=== PATIENT | female | born 1940 | race Caucasian/White ===

== ENCOUNTER → 2016-04-14 | Outpatient (CLI) | payer OTHER, MEDICARE ==
[~2016-04-14] MED LIST: ACET-1256 PO; AMIT75TA2 PO; AMLO5TAB4 PO; CLB/200 PO; DOXY1TAB6 PO; FERR324T PO; FEXO1TAB46 PO; METO-551 PO; MULT-663 PO; OMEP40CA41 PO; OXYC1TAB3 PO; PRED10TA PO; PRM/45 PO; TRAM-10 PO; TRAV0.00 OPB; VALS-10 PO; WARF1TAB PO; [UNRECOGNIZED DRUG - CODE] PO; [UNRECOGNIZED DRUG - CODE] PO
== END | disposition home or self-care (01) ==
LOC: C.LABSPEC 15:12
PROVIDERS: ATTEND Dermatology
DX: L98.9 Disorder of the skin and subcutaneous tissue, unspecified (principal)

== ENCOUNTER → 2016-05-01 | Outpatient (CLI) | payer OTHER, MEDICARE ==
[2016-05-01 10:59] LABS: BASO % 0.8 %; BASO ABS # 0.04 K/uL (0-0.2); COMPLETE YES; EOS % 6.6 %; IG% 0.2 %; LYMPH % 37.5 %; LYMPH ABS # 1.82 K/uL (1.2-3.4); MEAN CELL VOLUME 90.2 fL (80-100); MEAN CORPUSCULAR HEMOGLOBIN 30.9 pg (25-34); MEAN CORPUSCULAR HGB CONC 34.3 g/dl (32-36); MEAN PLATELET VOLUME 10.1 fL (7.4-10.4); NEUT % 46.9 %; PLATELET COUNT 333 K/uL (130-400); RED BLOOD COUNT 3.88 M/uL (4.2-5.4); WHITE BLOOD COUNT 4.85 K/uL (4.8-10.8)
[2016-05-01 11:21] LABS: ALKALINE PHOSPHATASE 67 U/L (45-117); ALT/SGPT 16 U/L (12-78); BLOOD UREA NITROGEN 15 mg/dl (7-18); CALCIUM 9.3 mg/dl (8.5-10.1); CARBON DIOXIDE 32 mmol/L (21-32); CHLORIDE 95 mmol/L (98-107); CHOLESTEROL 203 mg/dl (0-200); CREATININE 0.74 mg/dl (0.60-1.20); GLUCOSE 92 mg/dl (70-99); POTASSIUM 3.9 mmol/L (3.5-5.1); SODIUM 135 mmol/L (136-145); TRIGLYCERIDES 73 mg/dl (0-150); VERY LOW DENSITY LIPOPROT CALC 15 mg/dl
[2016-05-01 11:33] LABS: ALB/GLOB RATIO 1.1 (0.9-2); AST/SGOT 13 U/L (15-37); CHOLESTEROL/HDL RATIO 1.9; HDL CHOLESTEROL 106 mg/dl; LDL CHOLESTEROL CALCULATED 82 mg/dl
--- NOTE | 2016-05-06 09:00 | CODING QUERY MEDICAL NECESSITY ---
SUPPORTING DIAGNOSIS NEEDED Dr. Atkins, A supporting diagnosis is required for the test/procedure performed on this patient in order for us to be reimbursed by the patient's insurance. Please provide a supporting diagnosis for the following test/procedure listed below next to the test name along with your signature. *If there is no additional diagnosis for this patient that would support the following test/procedure please document that below next to the test/procedure. Test(s)/Procedure(s) that require a supporting diagnosis: * ([id number]) VITAMIN D ASSAY DIAGNOSIS: DATE OF SERVICE: 05/01/16 Provider Signature: Date: Thank you Jt [facility] Information Management Once completed, please kindly fax back to [phone] For questions please call [phone]
== END | disposition home or self-care (01) ==
LOC: C.LABBC 08:19
PROVIDERS: ATTEND Internal Medicine
DX: K21.9 Gastro-esophageal reflux disease without esophagitis (principal); M48.06 Spinal stenosis, lumbar region; M85.80 Other specified disorders of bone density and structure, unspecified site

== ENCOUNTER → 2016-05-04 | Outpatient (CLI) | payer OTHER, MEDICARE | END | disposition home or self-care (01) | LOC: C.LABSPEC 16:36 | PROVIDERS: ATTEND Dermatology | DX: S91.002A Unspecified open wound, left ankle, initial encounter (principal); X58.XXXA Exposure to other specified factors, initial encounter ==

== ENCOUNTER → 2016-05-25 | Outpatient (CLI) | payer OTHER, MEDICARE ==
--- NOTE | 2016-05-25 11:03 | DIAGNOSTIC IMAGING REPORT ---
LEFT ANKLE MIN 3 VIEWS ROUTINE CLINICAL HISTORY: S91.002A Wound of left [id number] pain COMPARISON: None. DISCUSSION: Small old avulsion tip medial malleolus. Margins are well corticated. Cortical margins are intact. There is no evidence for abnormal depressed reaction. Subtalar joint is intact. Mild soft tissue edema IMPRESSION: Mild soft tissue edema. No acute bony abnormality. Electronically signed by: Adonis Garza M.D. 05/25/2016 11:00 AM Dictated Date/Time: 05/25/2016 10:59 AM
== END | disposition home or self-care (01) ==
LOC: C.RAD1850 09:57
PROVIDERS: ATTEND Dermatology
DX: S91.002A Unspecified open wound, left ankle, initial encounter (principal); X58.XXXA Exposure to other specified factors, initial encounter

== ENCOUNTER → 2016-08-24 | Outpatient (CLI) | payer OTHER, MEDICARE | END | disposition home or self-care (01) | LOC: C.LABBC 08:32 | PROVIDERS: ATTEND Internal Medicine | DX: E03.9 Hypothyroidism, unspecified (principal) ==

== ENCOUNTER → 2016-08-30 | Outpatient (CLI) | payer OTHER, MEDICARE | END | disposition home or self-care (01) | LOC: C.LABSPEC 13:18 | PROVIDERS: ATTEND Dermatology | DX: S91.002A Unspecified open wound, left ankle, initial encounter (principal); X58.XXXA Exposure to other specified factors, initial encounter ==

== ENCOUNTER → 2017-03-01 | Outpatient (CLI) | payer OTHER, MEDICARE | END | disposition home or self-care (01) | LOC: C.PATHSPEC 16:32 | PROVIDERS: ATTEND Dermatology | DX: L82.1 Other seborrheic keratosis (principal); D22.61 Melanocytic nevi of right upper limb, including shoulder ==

== ENCOUNTER → 2017-05-11 | Outpatient (CLI) | payer OTHER, MEDICARE ==
[2017-05-11 11:16] LABS: BASO % 0.3 %; BASO ABS # 0.02 K/uL (0-0.2); EOS % 4.6 %; EOS ABS # 0.27 K/uL (0-0.5); HEMATOCRIT 32.3 % (37-47); HEMOGLOBIN 10.8 g/dL (12.0-16.0); IG# 0.01 K/uL (0.00-0.02); LYMPH % 33.6 %; LYMPH ABS # 1.97 K/uL (1.2-3.4); MEAN CELL VOLUME 90.2 fL (80-100); MEAN CORPUSCULAR HEMOGLOBIN 30.2 pg (25-34); MEAN CORPUSCULAR HGB CONC 33.4 g/dl (32-36); MEAN PLATELET VOLUME 9.4 fL (7.4-10.4); MONO % 10.4 %; MONO ABS # 0.61 K/uL (0.11-0.59); NEUT % 50.9 %; NEUT ABS # 2.99 K/uL (1.4-6.5); PLATELET COUNT 293 K/uL (130-400); RED CELL DISTRIBUTION WIDTH CV 13.2 % (11.5-14.5); RED CELL DISTRIBUTION WIDTH SD 43.4 fL (36.4-46.3); WHITE BLOOD COUNT 5.87 K/uL (4.8-10.8)
[2017-05-11 12:31] LABS: ALBUMIN 3.3 gm/dl (3.4-5.0); ALT/SGPT 20 U/L (12-78); AST/SGOT 16 U/L (15-37); BLOOD UREA NITROGEN 17 mg/dl (7-18); CARBON DIOXIDE 27 mmol/L (21-32); GLUCOSE 90 mg/dl (70-99); POTASSIUM 3.9 mmol/L (3.5-5.1); SODIUM 134 mmol/L (136-145)
[2017-05-11 12:41] LABS: ALKALINE PHOSPHATASE 73 U/L (45-117); CHOLESTEROL 191 mg/dl (0-200); LDL CHOLESTEROL CALCULATED 74 mg/dl; TOTAL PROTEIN 6.9 gm/dl (6.4-8.2)
== END | disposition home or self-care (01) ==
LOC: C.LABBC 08:18
PROVIDERS: ATTEND Internal Medicine
DX: I10 Essential (primary) hypertension (principal); E03.9 Hypothyroidism, unspecified; M48.061 Spinal stenosis, lumbar region without neurogenic claudication; M35.3 Polymyalgia rheumatica; M85.80 Other specified disorders of bone density and structure, unspecified site

== ENCOUNTER 2022-09-26 14:58 | Inpatient (IN) ==
--- NOTE | 2022-09-26 15:15 | Emergency Department Note ---
Impression & Plan Acute dyspnea ADMIT ED Provider Note HPI: The patient is an 81-year-old female who presents emergency department with chief complaint of dyspnea. Patient states that she has been dealing with this on and off for about the past month. Patient states that has been getting worse over the past several days. Patient states at times over the past month she has woken up with chest pain that spontaneously resolved. Patient states she did not have any chest pain this morning when she woke up. Patient states that she went to a local urgent care because her dyspnea was not going away. Patient states she was advised to go to the emergency department when she was seen at [place]. On arrival here to the ED the patient is hemodynamically stable but does appear to be dyspneic. She denies any chest pain. She is saturating well on room air on arrival. ROS: - Per HPI Differential Diagnosis: Acute coronary syndrome, acute CHF exacerbation, pulmonary edema, viral upper respiratory infection, pleural effusion, amongst other potential pathologies. *Outpatient medications and allergy history reviewed. *Pertinent external medical records reviewed. 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 EKG was obtained and per my review shows evidence of left bundle branch block (new from previous EKG available in 2013) with some repolarization abnormalities in the anterior leads V1 through V3. Patient denies any current chest pain therefore heart alert was not activated. I did review the patient's EKG with on-call interventional cardiology, Dr. Vieira, who recommended that the patient be admitted with cardiology consult and is in agreement that heart alert does not need to be activated at this time. Patient remained stable on spring upholsterer and dyspnea did improve while she was at rest in the bed. She remained saturating well on room air. Lab work shows no leukocytosis, hemoglobin is stable 11.9, platelet count is normal, CMP shows mild hyponatremia 133, no evidence of acute kidney injury, troponin is negative x1, BNP is noted to be elevated at 992. Chest x-ray shows some nonspecific interstitial opacities and a small left-sided pleural effusion. Patient denies any recent cough or fever, low suspicion for pneumonia. Given elevated BNP with dyspnea, patient was given a dose of IV Lasix. I discussed all the above findings with the patient and her son at the bedside and they are in agreement for admission. Case was discussed with the on-call hospitalist, Dr. Graves, and the patient was placed for admission in stable condition. Consultants: -Dr. Vieira, Cardiology -Dr. Graves, Hospitalist Disposition discussion held by myself with: Patient and son at bedside Diagnosis: 1. Dyspnea, acute 2. New left bundle branch block on EKG 3. Elevated BNP 4. Pleural effusion, left-sided Disposition: Admission Adonis Shah DO Emergency Medicine Past Med/Surg History Medical History (Updated 09/26/22 @ 17:26 by Misael Graves MD) Arthritis of multiple sites Chronic anemia normochromic normocytic HTN (hypertension) Hypothyroidism Osteopenia after menopause Surgical History History of hysterectomy History of lumbar laminectomy History of oophorectomy Family History Father COPD (chronic obstructive pulmonary disease) Stroke Hypertension Mother No problems noted. Brother Diabetes Uncle Dyslipidemia Denies family history of Ovarian cancer Prostate cancer Dementia Myocardial infarction Breast cancer Lung cancer Colorectal cancer Social History Smoking Status: Former smoker Tobacco Type: Cigarettes Second Hand Exposure: No; Do You Dip or Chew Tobacco: No; Hx Alcohol Use: Yes Alcohol type: wine and hard liquor Alcohol Intake Frequency: 4 or More x per/Week Alcohol Intake Frequency Comment: SOCIAL Hx Substance Use: No Preferred Language: Portuguese Communication Ability: Effective Visual Impairment: Limited Hearing Ability: Normal Archives Technician Required: No marital status: / Current Living Situation: Alone current occupational status: retired 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 [employer] How many Children do You have: 3 Feels Safe at Home: Yes Childhood Exposure to Second-Hand Smoke: Yes caffeine: Yes Dental Care, Regularly: Yes Physical Activity Frequency: Daily Seatbelt Use: always Sunscreen Use: Yes Assistive Devices: Contacts and Glasses Allergies Allergies Allergy/AdvReac Type Severity Reaction Status Date / Time Iodinated Contrast Media Allergy Severe ANAPHYLAXIS Verified 09/26/22 17:05 Home Meds Home Medications Medication Instructions Recorded Confirmed gikinti-ibl-cfa [id number]-xykdesul 250 1 tab PO DAILY 11/28/18 09/26/22 mg-40 mg-5 mg-125 unit tablet fexofenadine 180 mg tablet 180 mg PO DAILY PRN allergic 11/28/18 09/26/22 (Ana Allergy) symptoms travoprost 0.004 % eye drops 1 drops ophthalmic (eye) HS 11/28/18 09/26/22 (Travatan Z) pentoxifylline 400 mg 400 mg PO QAM 05/06/22 09/26/22 tablet,extended release amitriptyline 75 mg tablet 75 mg PO HS 09/26/22 09/26/22 amlodipine 5 mg tablet 5 mg PO QAM 09/26/22 09/26/22 yxnkggbebl-qmboaip-ruhslarh 50 1 cap PO DAILY PRN Migraine 09/26/22 09/26/22 mg-325 mg-40 mg capsule Headache celecoxib 200 mg capsule 200 mg PO QAM 09/26/22 09/26/22 levothyroxine 125 mcg tablet 125 mcg PO QAM 09/26/22 09/26/22 metoprolol tartrate 50 mg tablet 50 mg PO BID 09/26/22 09/26/22 omeprazole 40 mg capsule,delayed 40 mg PO QAM 09/26/22 09/26/22 release telmisartan 40 mg tablet 40 mg PO QAM 09/26/22 09/26/22 Previous Rx's Medication Instructions Recorded clotrimazole-betamethasone 1 1 applic topical DAILY #15 grams 02/22/20 %-0.05 % topical cream tramadol 50 mg tablet 50 mg PO TID PRN pain #90 tabs 08/20/22 Results & Data (ED) Vital Signs Vital Signs - 24 hr 09/26/22 15:00 09/26/22 15:28 09/26/22 15:30 Pulse Rate 83 79 Pulse Rhythm Regular Pulse Strength Normal Respiratory Rate 20 18 Respiratory Effort / Characteristics Non-Labored Spontaneous Spontaneous Short of Breath SOB on Exertion Respiratory Depth Normal Normal Respiratory Pattern Regular Tachypnea Blood Pressure 147/73 H 156/71 H Blood Pressure Mean 97 99 Blood Pressure Position Sitting Pulse Oximetry 95 96 Oxygen Delivery Method Room Air Room Air Sepsis Recent Fever Within 48 Hours No Sepsis New/Unexplained Change in Mental Status No Sepsis Action Taken by Nursing No Action Required 09/26/22 15:50 09/26/22 16:39 Pulse Rate 77 78 Pulse Rhythm Pulse Strength Respiratory Rate 18 Respiratory Effort / Characteristics Respiratory Depth Respiratory Pattern Blood Pressure 118/80 Blood Pressure Mean Blood Pressure Position Pulse Oximetry 97 Oxygen Delivery Method Room Air Sepsis Recent Fever Within 48 Hours Sepsis New/Unexplained Change in Mental Status Sepsis Action Taken by Nursing Laboratory Data 09/26/22 15:15 09/26/22 16:11 Lab Results 09/26/22 09/26/22 09/26/22 Range/Units 15:15 15:15 15:15 WBC 8.36 (4.8-10.8) K/ul RBC 3.91 L (4.20-5.40) M/uL Hgb 11.9 L (12.0-16.0) g/dl Hct 35.3 L (37.0-47.0) % MCV 90.3 (80.0-100.0) fL MCH 30.4 (25.0-34.0) pg MCHC 33.7 (32.0-36.0) g/dL RDW Std Deviation 45.2 (36.4-46.3) fL RDW Coeff of Kalli 13.7 (11.5-14.5) % Plt Count 290 (130-400) K/uL MPV 10.1 (9.4-12.4) fL Immature Gran % (Auto) 0.4 % Neut % (Auto) 56.7 % Lymph % (Auto) 33.5 % Lee % (Auto) 5.6 % Eos % (Auto) 3.3 % Baso % (Auto) 0.5 % Neut # (Auto) 4.74 (1.40-6.50) K/uL Lymph # (Auto) 2.80 (1.2-3.4) K/uL Lee # (Auto) 0.47 (0.11-0.59) K/uL Eos # (Auto) 0.28 (0-0.50) K/uL Baso # (Auto) 0.04 (0-0.2) K/uL Immature Gran # (Auto) 0.03 (0.01-0.20) K/uL PT Cancelled INR Cancelled Sodium 133 L (136-145) mmol/L Potassium TNP Chloride 97 L (98-107) mmol/L Carbon Dioxide 29 (21-32) mmol/L Anion Gap 7 (3-11) BUN 20 (6-23) mg/dl Creatinine 0.97 (0.6-1.2) mg/dl Est Cr Clr Drug Dosing 40.2 ml/min Est GFR ( Amer) 63.0 ml/min Est GFR (Non-Af Amer) 54.4 ml/min BUN/Creatinine Ratio 20.6 H (10-20) Glucose 113 H (70-99(Fasting)) mg/dl Calcium 9.4 (8.6-10.3) mg/dl Total Bilirubin 0.4 (0.2-1.0) mg/dl AST TNP ALT 15 (7-52) U/L Alkaline Phosphatase 101 (34-104) U/L Troponin I High Sens 4.9 (0-14) pg/ml B-Natriuretic Peptide (0-100) pg/ml Total Protein 7.7 (6.0-8.3) gm/dl Albumin 4.1 (3.4-5.0) gm/dl Globulin 3.6 (2.5-4.0) gm/dl Albumin/Globulin Ratio 1.1 (0.9-2) Lipase 15 (11-82) U/L Adenovirus (PCR) (NotDetected) B. pertussis DNA (PCR) (NotDetected) B.parapertussis DNA PCR (NotDetected) C. pneumoniae DNA (PCR) (NotDetected) Coronavirus OC43 (PCR) (NotDetected) Coronavirus HKU1 (PCR) (NotDetected) Coronavirus 229E (PCR) (NotDetected) SARS-CoV-2 (PCR) (NotDetected) Coronavirus NL63 (PCR) (NotDetected) Human Metapneumovir PCR (NotDetected) Influenza Type A (PCR) (NotDetected) Influenza Type B (PCR) (NotDetected) M. pneumoniae (PCR) (NotDetected) Parainfluenza 1 (PCR) (NotDetected) Parainfluenza 2 (PCR) (NotDetected) Parainfluenza 3 (PCR) (NotDetected) Parainfluenza 4 (PCR) (NotDetected) RSV (PCR) (NotDetected) Entero/Rhino (PCR) (NotDetected) 09/26/22 09/26/22 09/26/22 Range/Units 16:07 16:11 16:11 WBC (4.8-10.8) K/ul RBC (4.20-5.40) M/uL Hgb (12.0-16.0) g/dl Hct (37.0-47.0) % MCV (80.0-100.0) fL MCH (25.0-34.0) pg MCHC (32.0-36.0) g/dL RDW Std Deviation (36.4-46.3) fL RDW Coeff of Kalli (11.5-14.5) % Plt Count (130-400) K/uL MPV (9.4-12.4) fL Immature Gran % (Auto) % Neut % (Auto) % Lymph % (Auto) % Lee % (Auto) % Eos % (Auto) % Baso % (Auto) % Neut # (Auto) (1.40-6.50) K/uL Lymph # (Auto) (1.2-3.4) K/uL Lee # (Auto) (0.11-0.59) K/uL Eos # (Auto) (0-0.50) K/uL Baso # (Auto) (0-0.2) K/uL Immature Gran # (Auto) (0.01-0.20) K/uL PT INR Sodium (136-145) mmol/L Potassium 4.4 Chloride (98-107) mmol/L Carbon Dioxide (21-32) mmol/L Anion Gap (3-11) BUN (6-23) mg/dl Creatinine (0.6-1.2) mg/dl Est Cr Clr Drug Dosing ml/min Est GFR ( Amer) ml/min Est GFR (Non-Af Amer) ml/min BUN/Creatinine Ratio (10-20) Glucose (70-99(Fasting)) mg/dl Calcium (8.6-10.3) mg/dl Total Bilirubin (0.2-1.0) mg/dl AST 21 ALT (7-52) U/L Alkaline Phosphatase (34-104) U/L Troponin I High Sens (0-14) pg/ml B-Natriuretic Peptide 992 H (0-100) pg/ml Total Protein (6.0-8.3) gm/dl Albumin (3.4-5.0) gm/dl Globulin (2.5-4.0) gm/dl Albumin/Globulin Ratio (0.9-2) Lipase (11-82) U/L Adenovirus (PCR) Not Detected (NotDetected) B. pertussis DNA (PCR) Not Detected (NotDetected) B.parapertussis DNA PCR Not Detected (NotDetected) C. pneumoniae DNA (PCR) Not Detected (NotDetected) Coronavirus OC43 (PCR) Not Detected (NotDetected) Coronavirus HKU1 (PCR) Not Detected (NotDetected) Coronavirus 229E (PCR) Not Detected (NotDetected) SARS-CoV-2 (PCR) Not Detected (NotDetected) Coronavirus NL63 (PCR) Not Detected (NotDetected) Human Metapneumovir PCR Not Detected (NotDetected) Influenza Type A (PCR) Not Detected (NotDetected) Influenza Type B (PCR) Not Detected (NotDetected) M. pneumoniae (PCR) Not Detected (NotDetected) Parainfluenza 1 (PCR) Not Detected (NotDetected) Parainfluenza 2 (PCR) Not Detected (NotDetected) Parainfluenza 3 (PCR) Not Detected (NotDetected) Parainfluenza 4 (PCR) Not Detected (NotDetected) RSV (PCR) Not Detected (NotDetected) Entero/Rhino (PCR) Not Detected (NotDetected) Administered Medications Discontinued Medications Aspirin (Aspirin Chew 324 Mg) 324 mg PO NOW STA Stop: 09/26/22 15:28 Last Admin: 09/26/22 15:34 Dose: 324 mg Documented By: ISREAL Imaging Data Radiologist's Impression: Chest X-Ray 09/26/22 15:14 XR chest 1V portable CLINICAL HISTORY: Chest pain, nonspecific TECHNIQUE: Single frontal radiograph of the chest was obtained. Comparison: None available at the time of this dictation. FINDINGS: No lines and tubes are seen. Cardiomegaly is noted. Reticular interstitial opacities are seen. There is a small left pleural effusion. IMPRESSION: Interstitial opacities without evidence of acute abnormalities. ACT 112: Negative or not required by law. Electronically signed by: Bhupinder Dove M.D. 09/26/2022 3:40 PM Discharge Plan Visit Data Chief Complaint: Shortness of Breath/Dyspnea Stated Complaint: SHORTNESS OF BREATH - REFERRED BY [employer] ED Provider: Adonis Shah Discharge Problem: Acute dyspnea Discharge Instructions Interventions: ED Discharge Assessment Last Done: 09/26/22 16:39 Forms Stand Alone Forms: My [facility] [employer] Prescriptions Prescriptions: No Action tramadol 50 mg tablet 50 mg PO TID PRN (Reason: pain) Qty: 90 1RF clotrimazole-betamethasone 1-0.05 % cream 1 applic topical DAILY Qty: 15 0RF Rx Instructions: Apply to area of the left leg once daily as directed. pentoxifylline 400 mg tablet extended release 400 mg PO QAM Rx Instructions: administer with meals fexofenadine [Ana Allergy] 180 mg tablet 180 mg PO DAILY PRN (Reason: allergic symptoms) sosvliz-gzg-tgb L3-G1-kdplwfeq 451-24-8-125 gp-jv-ky-unit tablet 1 tab PO DAILY Travatan Z 0.004 % drops 1 drops OP HS celecoxib 200 mg capsule 200 mg PO QAM amitriptyline 75 mg tablet 75 mg PO HS amlodipine 5 mg tablet 5 mg PO QAM omeprazole 40 mg capsule,delayed release(DR/EC) 40 mg PO QAM telmisartan 40 mg tablet 40 mg PO QAM levothyroxine 125 mcg tablet 125 mcg PO QAM metoprolol tartrate 50 mg tablet 50 mg PO BID zyplusnvbt-iqzbqgi-soncztpg 50-325-40 mg capsule 1 cap PO DAILY PRN (Reason: Migraine Headache) Referrals Referrals: PCP,NO [Physician] -
[2022-09-26] MEDS ORDERED: ASPIRIN CHEW 324 MG PO STA (15:27)
[2022-09-26 15:38] LABS: Basophils # (auto) 0.04 K/uL (0-0.2); Basophils % (auto) 0.5 %; Eosinophils # (auto) 0.28 K/uL (0-0.50); Eosinophils % (auto) 3.3 %; Hematocrit (blood only) 35.3 % (37.0-47.0); Hemoglobin 11.9 g/dl (12.0-16.0); Immature Granulocytes # (auto) 0.03 K/uL (0.01-0.20); Immature Granulocytes % (auto) 0.4 %; Lymphocytes % (auto) 33.5 %; Mean Corpuscular Hemoglobin 30.4 pg (25.0-34.0); Mean Corpuscular Hgb Conc 33.7 g/dL (32.0-36.0); Mean Corpuscular Volume 90.3 fL (80.0-100.0); Mean Platelet Volume 10.1 fL (9.4-12.4); Monocytes # (auto) 0.47 K/uL (0.11-0.59); Monocytes % (auto) 5.6 %; Neutrophils # (auto) 4.74 K/uL (1.40-6.50); Neutrophils % (auto) 56.7 %; Platelet Count 290 K/uL (130-400); RDW Coefficient of Variation 13.7 % (11.5-14.5); RDW Standard Deviation 45.2 fL (36.4-46.3); Red Blood Count 3.91 M/uL (4.20-5.40); White Blood Count 8.36 K/ul (4.8-10.8)
--- NOTE | 2022-09-26 15:43 | XRay Report ---
XR chest 1V portable CLINICAL HISTORY: Chest pain, nonspecific TECHNIQUE: Single frontal radiograph of the chest was obtained. Comparison: None available at the time of this dictation. FINDINGS: No lines and tubes are seen. Cardiomegaly is noted. Reticular interstitial opacities are seen. There is a small left pleural effusion. IMPRESSION: Interstitial opacities without evidence of acute abnormalities. ACT 112: Negative or not required by law. Electronically signed by: Bhupinder Dove M.D. 09/26/2022 3:40 PM
[2022-09-26 16:01] LABS: Alanine Aminotransferase 15 U/L (7-52); Albumin Globulin Ratio 1.1 (0.9-2); Albumin Level 4.1 gm/dl (3.4-5.0); Alkaline Phosphatase 101 U/L (34-104); Anion Gap 7 (3-11); BUN Creatinine Ratio 20.6 (10-20); Bilirubin,Total 0.4 mg/dl (0.2-1.0); Blood Urea Nitrogen 20 mg/dl (6-23); Calcium 9.4 mg/dl (8.6-10.3); Carbon Dioxide 29 mmol/L (21-32); Chloride 97 mmol/L (98-107); Creatinine Clr Calc Pharmacy 40.2 ml/min; Est GFR (Non-African American) 54.4 ml/min; Globulin 3.6 gm/dl (2.5-4.0); Glucose 113 mg/dl (70-99(Fasting)); Lipase 15 U/L (11-82); Sodium 133 mmol/L (136-145); Total Protein 7.7 gm/dl (6.0-8.3); Troponin I High Sensitivity 4.9 pg/ml (0-14)
[2022-09-26 16:42] LABS: Potassium 4.4 mmol/L (3.5-5.1)
[2022-09-26] MEDS ORDERED: FUROSEMIDE 40 MG/4 ML VIAL IV ONE (16:51)
--- NOTE | 2022-09-26 17:06 | History & Physical Report ---
Date of Service September 26, 2022 Assessment & Plan (1) Chest pain: Plan: Dyspnea on exertion, suspect acute CHF with possible IN 2 months ago Patient reports that 2 months ago she had an episode where she was awoken at 3 AM with very painful chest pressure radiating through her sternum and left breast into her left arm which was associated with shortness of breath and severe sweating. She reports that she waited this out and laid back in bed and it seemed to get mostly better after around 30 minutes and then eventually went away. Since that time she has noticed that she has been more short of breath with exertion, and has had some swelling in her ankles which has never happened before. She has had 2 additional events of similar chest pain with shortness of breath and sweating brought out by exertion since then which improved with rest. She has not had any episodes at rest since that event. Last time she had chest pain was walking out to take out trash and up the stairs 3 days ago. These episodes have lasted less than 20 minutes Suspect that patient likely had a IN 2 months ago with subsequent fluid retention/CHF EKG is with left bundle branch block and? ST elevation/depressions versus bundle repole. Her last EKG before this was 2012, acuity unclear Patient's presentation was discussed with interventional cardiology by ER. As patient has been chest pain-free throughout the weekend, currently has a negative troponin would not recommend heparinization or emergency catheterization. Can admit to telemetry and consult cardiology Will admit to PCU. If patient develops recurrent chest pain would heparinize low-dose normal gram with bolus at that time. Patient did receive aspirin 324 mg in ER, in addition to Lasix for CHF BNP is elevated at 992, no prior on file for baseline She is not hypoxic, CXR shows interstitial opacities and small left pleural effusion Troponin x2 repeated Nitro on-call Continue metoprolol - Lasix daily for AoC CHF. EF pending. Chronic anemia At baseline, 11.9 on admission normocytic No acute bleeding Last outpatient for Hypertension Low-sodium diet Continue amlodipine, metoprolol, ARB Hypothyroidism Last TSH 0.61, continue Synthroid Livedoid vasculopathy Follows with Derm, continue pentoxifylline. No acute exacerbation Chronic urinary incontinence s/p OTTO with bladder tack [place] [facility] [place] [place] No current symptoms DVT prophylaxis: Lovenox Disposition: PCU for CHF CODE STATUS: DNR/DNI Diet: Heart healthy/low-sodium (2) Acute dyspnea: (3) HTN (hypertension): (4) Hypothyroidism: (5) Gastroesophageal reflux disease without esophagitis: History of Present Illness Primary Care Provider: Elisabet Philip MD Anay Weaver is an 81-year-old female with a past medical history of hypertension, hypothyroidism, osteopenia, hyponatremia who presents with progressive worsening dyspnea over the last week Anay is seen at the bedside with her son angelito present. Anay reports she has bene progressively more short of breath for a couple months. Notes exertional dyspnea for a few months. thought it was from post COVID which she had last month with a residual dry cough. 2 months ago had her first episode of chest pain at 3am which woke her from sleep under the L chest and which went into her L arm. [place] like she couldn't breath. Waited it out and got 'very clammy and sweaty and felt like I was going to pass out'. Passed after 15 minutes or so. Went away by morning so never sought an evaluation. Since that time shortness of breath has progressively worsened. Had another episode of chest pain getting out of the shower and got a similar pain in the chest but sharper in the L arm 2 weeks ago. She again got very sweaty and short of breath. Laid down in bed and symptoms passed after 20 minutes. Continued to have exertional shortness of breath sicne then. Has no longer been able to get to the top of her stairs or out to the dumpster without getting extremely dyspneic and had to stand still and rest for a while before walking again. Was worried she might have pneumonia affecting her breathing so came for evaluation. Had one episode of <20 minutes of chest pain, SoB, diaphoresis on tuesday, She has had no chest pain in the last pain in the last 48 hours. No chest pain at time of evaluation, no sob at time of evaluation. Has some pain under her rib with deep breathing. No history of DM. +history of HTN and reports normally ~130s with amlodipine, metoprolol, and telmisartan. Takes a daily 81mg aspirin. Fhx of DM and endocrine problems from agent orange. IN in mother at age 76. Father had a stroke at age 81. Medical History: Reviewed Medications: Reviewed Surgical History: Reviewed Family history: Reviewed Allergies: Reviewed Social History: No tobacco use, social etoh use none in the last few weeks. normally 1 glass of wine 3x/week at night Code Status: DNR/DNI Allergies Allergy/AdvReac Type Severity Reaction Status Date / Time Iodinated Contrast Media Allergy Severe ANAPHYLAXIS Verified 09/26/22 17:05 Home Medications Medication Instructions Recorded Confirmed Type bqzihfh-ozd-zqk P5-J8-lkgsvnoc 250 1 tab PO DAILY 11/28/18 09/26/22 History mg-40 mg-5 mg-125 unit tablet fexofenadine 180 mg tablet 180 mg PO DAILY PRN allergic 11/28/18 09/26/22 History (Ana Allergy) symptoms travoprost 0.004 % eye drops 1 drops ophthalmic (eye) HS 11/28/18 09/26/22 History (Travatan Z) clotrimazole-betamethasone 1 1 applic topical DAILY #15 grams 02/22/20 09/26/22 Rx %-0.05 % topical cream pentoxifylline 400 mg 400 mg PO QAM 05/06/22 09/26/22 History tablet,extended release tramadol 50 mg tablet 50 mg PO TID PRN pain #90 tabs 08/20/22 09/26/22 Rx amitriptyline 75 mg tablet 75 mg PO HS 09/26/22 09/26/22 History amlodipine 5 mg tablet 5 mg PO QAM 09/26/22 09/26/22 History sczkdaxldz-wphlgro-wfvcgbvq 50 1 cap PO DAILY PRN Migraine 09/26/22 09/26/22 History mg-325 mg-40 mg capsule Headache celecoxib 200 mg capsule 200 mg PO QAM 09/26/22 09/26/22 History levothyroxine 125 mcg tablet 125 mcg PO QAM 09/26/22 09/26/22 History metoprolol tartrate 50 mg tablet 50 mg PO BID 09/26/22 09/26/22 History omeprazole 40 mg capsule,delayed 40 mg PO QAM 09/26/22 09/26/22 History release telmisartan 40 mg tablet 40 mg PO QAM 09/26/22 09/26/22 History Past Med/Surg History Medical History (Updated 09/26/22 @ 17:26 by Misael Graves MD) Arthritis of multiple sites Chronic anemia normochromic normocytic HTN (hypertension) Hypothyroidism Osteopenia after menopause Surgical History History of hysterectomy History of lumbar laminectomy History of oophorectomy Family History Father COPD (chronic obstructive pulmonary disease) Stroke Hypertension Mother No problems noted. 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 marital status: / Current Living Situation: Alone current occupational status: retired 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 NAD. Cooperative. HEENT: Atraumatic, normocephalic. Vision/hearing intact Pulm: CTAB A&P. -wheezes, -rales, -rhonchi. Symmetrical chest rise. No increased work of breathing. No respiratory distress. Cardiac: RRR, -mrg. Radial pulses intact and symmetrical. Trace JVD at the clavicle which rises about 2 cm above the clavicle on HJR Abdominal: Nontender, nondistended, soft. BS present. Ext: Warm, dry. Moves all extremities equally. 1+ ankle edema bilateral Results & Data Results & Data Vital Signs (Past 12 Hours) Vital Signs Pulse Resp BP Pulse Ox O2 Del Method 09/26/22 16:39 78 18 118/80 97 Room Air 09/26/22 15:50 77 09/26/22 15:30 79 18 156/71 H 96 09/26/22 15:28 Room Air 09/26/22 15:00 83 20 147/73 H 95 Room Air PG Care Time/CCT Total # of Minutes Spent Total Time Spent with Patient: Total time spent is greater than 50% in coordination of care (as documented) at patient's floor/unit and/or counseling patient: Coding Level of Care Code 00263 INT INP/OBS CARE 3/75MIN Diagnoses Chest pain R07.9 Acute dyspnea R06.00 HTN (hypertension) I10 Hypertension type: essential hypertension Hypothyroidism E03.9 Hypothyroidism type: acquired Gastroesophageal reflux disease without esophagitis K21.9 (3) HTN (hypertension) Hypertension type: essential hypertension Qualified Code(s): I10 - Essential (primary) hypertension (4) Hypothyroidism Hypothyroidism type: acquired Qualified Code(s): E03.9 - Hypothyroidism, unspecified
[2022-09-26 17:12] LABS: Adenovirus PCR Not Detected (NotDetected); Bordetella parapertussis PCR Not Detected (NotDetected); Bordetella pertussis PCR Not Detected (NotDetected); Chlamydia pneumoniae PCR Not Detected (NotDetected); Coronavirus 229E PCR Not Detected (NotDetected); Coronavirus CoV-2 (COVID19)PCR Not Detected (NotDetected); Coronavirus HKU1 PCR Not Detected (NotDetected); Coronavirus NL63 PCR Not Detected (NotDetected); Coronavirus OC43PCR Not Detected (NotDetected); Human Metapneumovirus PCR Not Detected (NotDetected); Influenza A PCR Not Detected (NotDetected); Influenza B PCR Not Detected (NotDetected); Mycoplasma pneumoniae PCR Not Detected (NotDetected); Parainfluenza Virus 1 PCR Not Detected (NotDetected); Parainfluenza Virus 2 PCR Not Detected (NotDetected); Parainfluenza Virus 3 PCR Not Detected (NotDetected); Parainfluenza Virus 4 PCR Not Detected (NotDetected); Respiratory Syncytial VirusPCR Not Detected (NotDetected); Rhinovirus/Enterovirus PCR Not Detected (NotDetected)
[2022-09-26 18:07] LABS: INR 0.9 (0.9-1.1); Prothrombin Time 10.3 Seconds (9.0-12.0)
[2022-09-26] MEDS ORDERED: FEXOFENADINE HCL 180 MG TAB PO PRN (19:28)
[2022-09-26] MEDS ORDERED: BUTALBITAL/ASPIRIN/CAFFEINE 1 TAB TAB PO PRN (19:28)
[2022-09-26] MEDS ORDERED: NITROGLYCERIN SL 0.4 MG/TAB TAB SL PRN (19:28)
[2022-09-26] MEDS ORDERED: ACETAMINOPHEN 325 MG TAB PO PRN (19:28)
[2022-09-26] MEDS: TRAVOPROST Z 0.004% OPH SOLN 2.5 ML BTL OP SCH (20:18)
[2022-09-26] MEDS: AMITRIPTYLINE HCL 25 MG TAB PO SCH (20:19)
[2022-09-26] MEDS: METOPROLOL TARTRATE 50 MG TAB PO SCH (20:20)
[2022-09-26] MEDS: traMADol HCL 50 MG TABLET PO PRN (23:10)
[2022-09-27] MEDS: LEVOTHYROXINE SODIUM 125 MCG TABLET PO SCH (06:12)
[2022-09-27 06:58] LABS: Basophils # (auto) 0.04 K/uL (0-0.2); Basophils % (auto) 0.7 %; Eosinophils # (auto) 0.25 K/uL (0-0.50); Eosinophils % (auto) 4.4 %; Hematocrit (blood only) 32.8 % (37.0-47.0); Hemoglobin 11.2 g/dl (12.0-16.0); Immature Granulocytes # (auto) 0.01 K/uL (0.01-0.20); Immature Granulocytes % (auto) 0.2 %; Lymphocytes # (auto) 2.16 K/uL (1.2-3.4); Mean Corpuscular Hemoglobin 29.9 pg (25.0-34.0); Mean Corpuscular Hgb Conc 34.1 g/dL (32.0-36.0); Mean Corpuscular Volume 87.5 fL (80.0-100.0); Mean Platelet Volume 9.9 fL (9.4-12.4); Monocytes # (auto) 0.63 K/uL (0.11-0.59); Monocytes % (auto) 11.1 %; Neutrophils % (auto) 45.6 %; Platelet Count 265 K/uL (130-400); RDW Coefficient of Variation 13.2 % (11.5-14.5); RDW Standard Deviation 42.5 fL (36.4-46.3); Red Blood Count 3.75 M/uL (4.20-5.40); White Blood Count 5.69 K/ul (4.8-10.8)
[2022-09-27 07:16] LABS: BUN Creatinine Ratio 23.2 (10-20); Calcium 9.4 mg/dl (8.6-10.3); Creatinine Clr Calc Pharmacy 49.5 ml/min; Est GFR (African American) 77.2 ml/min; Est GFR (Non-African American) 66.6 ml/min; Magnesium 2.1 mg/dl (1.7-2.4); Potassium 3.7 mmol/L (3.5-5.1)
[2022-09-27] MEDS: amLODIPine BESYLATE 5 MG TAB PO SCH (08:31)
[2022-09-27] MEDS: PANTOprazole 40 MG TAB PO SCH (08:31)
[2022-09-27] MEDS: METOPROLOL TARTRATE 50 MG TAB PO SCH ×2 (08:31→20:25)
[2022-09-27] MEDS: MULTIVITAMIN TAB PO SCH (08:31)
[2022-09-27] MEDS: PENTOXIFYLLINE 400MG EXT REL TAB PO SCH (08:31)
[2022-09-27] MEDS: ASPIRIN 81 MG ECTAB PO SCH (08:31)
[2022-09-27] MEDS: LOSARTAN POTASSIUM 50 MG TAB PO SCH (08:31)
[2022-09-27] MEDS ORDERED: FUROSEMIDE 40 MG/4 ML VIAL IV SCH (09:00)
--- NOTE | 2022-09-27 10:10 | XCELERA ---
[id number]\[id number]
--- NOTE | 2022-09-27 11:21 | Hospitalist Progress Note ---
Date of Service September 27, 2022 Assessment & Plan (1) CAD (coronary artery disease): Plan: - 2 months ago had chest pressure at home with pain radiating to left arm/jaw with associated SOB and diaphoresis, self-resolved - Has had some chest paind and IRVIN since that time, with some of the same this weekend - Troponins negative - EKG with LBBB - Echo today with new LV dysfunction EF 25-30%, with large anteroapical wall motion abnormality - For catheterization tomorrow - Continue aspirin, metoprolol tartrate (transition to succinate for discharge), and losartan - BNP is elevated at 992, no prior on file for baseline - She is not hypoxic, CXR shows interstitial opacities and small left pleural effusion - Received IV diuresis today and in ER, defer further and await CHF consult (Winter mckeon) - Cardiology consulted and appreciate recommendations (2) HFrEF (heart failure with reduced ejection fraction): Plan: - EF 25-30% on Echo 09/27, suspected ischemic cardiomyopathy, cath tomorrow - On beta yash and ARB already (3) HTN (hypertension): Plan: - Low-sodium diet - Continue metoprolol, ARB; stop amlodipine given WMA per Cardiology (4) Hypothyroidism: Plan: - Last TSH 0.61, continue Synthroid (5) Gastroesophageal reflux disease without esophagitis: Plan: - Continue PPI (6) Chronic anemia: Plan: - At baseline, 11.9 on admission normocytic - No acute bleeding Plan Cath tomorrow, ongoing recs after this Admission and Anticipated Discharge Date Admission Date: September 26, 2022 Subjective No overnight events, in particular no SOB or chest pain. Feeling much better today. Physical Exam Constitutional: WD/WN, vitals as above Respiratory: normal respiratory effort, lungs clear to auscultation Cardiovascular: RRR, no murmur, no edema Gastrointestinal (Abdomen): normal bowel sounds, soft, nontender, no hepatosplenomegaly Skin: no rashes, warm and dry Psychiatric: A+Ox3, euthymic affect Results & Data Results & Data Vital Signs (Past 12 Hours) Vital Signs Temp Pulse Pulse Resp BP BP Pulse Ox 09/27/22 09:00 09/27/22 08:00 55 L 09/27/22 07:43 36.3 C L 72 18 153/70 H 97 09/27/22 03:12 36.6 C 57 L 18 120/63 94 O2 Del Method 09/27/22 09:00 Room Air 09/27/22 08:00 09/27/22 07:43 Room Air 09/27/22 03:12 Room Air PG Care Time/CCT Total # of Minutes Spent Total Time Spent with Patient: Total time spent is greater than 50% in coordination of care (as documented) at patient's floor/unit and/or counseling patient: Coding Level of Care Code 18713 SUB INP/OBS CARE 3/50MIN Diagnoses CAD (coronary artery disease) I25.10 HFrEF (heart failure with reduced ejection fraction) I50.20 HTN (hypertension) I10 Hypertension type: essential hypertension Hypothyroidism E03.9 Hypothyroidism type: acquired Gastroesophageal reflux disease without esophagitis K21.9 Chronic anemia D64.9 (3) HTN (hypertension) Hypertension type: essential hypertension Qualified Code(s): I10 - Essential (primary) hypertension (4) Hypothyroidism Hypothyroidism type: acquired Qualified Code(s): E03.9 - Hypothyroidism, unspecified
--- NOTE | 2022-09-27 13:16 | Cardiology Consultation ---
Date of Consultation September 27, 2022 Assessment & Plan (1) CAD (coronary artery disease): -suspect she suffered an anteroapical NV, 2 months ago with the symptoms as described. -echocardiogram notes a large anteroapical wall motion abnormality and significant left ventricular dysfunction. -sounds like she has been experiencing exertional angina pectoris since that time. -recommend cardiac catheterization in a.m. -continue metoprolol tartrate, losartan, and aspirin. -would discontinue amlodipine. (2) Acute on chronic systolic (congestive) heart failure: -agree with intravenous Lasix 40 mg daily. -would convert metoprolol tartrate to succinate prior to discharge. -enroll in the CHF clinic. (3) Mitral valve disorder: -at least moderate mitral regurgitation noted on current echocardiogram. -await cardiac catheterization. History of Present Illness Attending Physician: Anila Reddy, DO History of Present Illness Mrs. Weaver is an 81-year-old female admitted yesterday exertional dyspnea and a chest pain syndrome. This consultation was ordered to assist in her cardiac. The patient's recent history began approximately 2 months ago when she was awakened from a sound sleep at 0300 with crushing substernal chest pain radiating to her left breast. There was associated shortness of breath and diaphoresis. Discomfort was intense for approximately 30 minutes however, then began to improve. She was able to fall back to sleep and when she woke several hours later, her discomfort had resolved. Since that time, she has been noticing exertional dyspnea which has been progressive. Several days ago, she became short of breath simply walking up 1 flight of stairs with the laundry. She has also experienced several episodes of exertional chest discomfort which resolves with rest. This occurred 3 days ago when she was caring trash up 1 flight of stairs. Her symptoms lasted for approximately 20 minutes. The patient has never known of a cardiac event. She has never had a cardiac catheterization. Currently, patient is resting comfortably in bed without complaints. Past medical and surgical history 1. Hypertension 2. Hypothyroidism 3. Chronic anemia 4. GERD 5. Osteopenia 6. DJD 7. OTTO/BSO 8. Lumbar laminectomy 9. Left THR-2012 Social history , lives alone No tobacco Social alcohol Family history Mother at 76 from an NV Father at 81 from CVA Her sister struggles with obesity Her brother has atrial fibrillation Review of systems A 10 review systems was undertaken and negative except that described removed. Allergies Allergy/AdvReac Type Severity Reaction Status Date / Time Iodinated Contrast Media Allergy Severe ANAPHYLAXIS Verified 09/26/22 17:05 Home Medications Medication Instructions Recorded Confirmed Type owomdfj-yvi-eky J6-G5-broyfdpi 250 1 tab PO DAILY 11/28/18 09/26/22 History mg-40 mg-5 mg-125 unit tablet fexofenadine 180 mg tablet 180 mg PO DAILY PRN allergic 11/28/18 09/26/22 History (Ana Allergy) symptoms travoprost 0.004 % eye drops 1 drops ophthalmic (eye) HS 11/28/18 09/26/22 History (Travatan Z) clotrimazole-betamethasone 1 1 applic topical DAILY #15 grams 02/22/20 09/26/22 Rx %-0.05 % topical cream pentoxifylline 400 mg 400 mg PO QAM 05/06/22 09/26/22 History tablet,extended release tramadol 50 mg tablet 50 mg PO TID PRN pain #90 tabs 08/20/22 09/26/22 Rx amitriptyline 75 mg tablet 75 mg PO HS 09/26/22 09/26/22 History amlodipine 5 mg tablet 5 mg PO QAM 09/26/22 09/26/22 History bqymywvsfh-exmumza-xsisffmr 50 1 cap PO DAILY PRN Migraine 09/26/22 09/26/22 History mg-325 mg-40 mg capsule Headache celecoxib 200 mg capsule 200 mg PO QAM 09/26/22 09/26/22 History levothyroxine 125 mcg tablet 125 mcg PO QAM 09/26/22 09/26/22 History metoprolol tartrate 50 mg tablet 50 mg PO BID 09/26/22 09/26/22 History omeprazole 40 mg capsule,delayed 40 mg PO QAM 09/26/22 09/26/22 History release telmisartan 40 mg tablet 40 mg PO QAM 09/26/22 09/26/22 History Patient History Medical History (Updated 09/27/22 @ 13:10 by Renan Gomez MD) Arthritis of multiple sites Chronic anemia normochromic normocytic HTN (hypertension) Hypothyroidism Osteopenia after menopause Surgical History History of hysterectomy History of lumbar laminectomy History of oophorectomy Family History Father COPD (chronic obstructive pulmonary disease) Stroke Hypertension Mother No problems noted. Brother Diabetes Uncle Dyslipidemia Denies family history of Ovarian cancer Prostate cancer Dementia Myocardial infarction Breast cancer Lung cancer Colorectal cancer Social History Smoking Status: Never smoker Tobacco Type: Cigarettes Second Hand Exposure: No; Do You Dip or Chew Tobacco: No; Hx Alcohol Use: Yes Alcohol type: wine and hard liquor Alcohol Intake Frequency: 4 or More x per/Week Alcohol Intake Frequency Comment: SOCIAL Hx Substance Use: No Preferred Language: Greenlandic Communication Ability: Effective Visual Impairment: Limited Hearing Ability: Normal Director Of Global Talent Required: No Beliefs That Will Affect Care: None marital status: / Current Living Situation: Alone current occupational status: retired 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 HEENT exam is negative. Neck is supple with full carotid upstrokes. No carotid bruits. Jugular venous pressure is flat at 90. There is no thyromegaly. Cardiovascular exam reveals a regular rhythm with normal S1 and S2. Heart sounds are distant. No obvious murmurs. Lungs are clear without rales, rhonchi, or wheezes. Abdomen is soft nontender without bruits. Extremities reveal intact radial artery pulses bilaterally. There is no peripheral edema. Results & Data Vital Signs (Past 12 Hours) Vital Signs Temp Pulse Pulse Resp BP BP Pulse Ox 09/27/22 10:37 37.0 C 68 18 132/76 100 09/27/22 09:00 09/27/22 08:00 55 L 09/27/22 07:43 36.3 C L 72 18 153/70 H 97 09/27/22 03:12 36.6 C 57 L 18 120/63 94 O2 Del Method 09/27/22 10:37 Room Air 09/27/22 09:00 Room Air 09/27/22 08:00 09/27/22 07:43 Room Air 09/27/22 03:12 Room Air Laboratory Results CBC notes hemoglobin 11.2, crit 32.8, white count 5.7, platelet count [id number]. Electrolytes note a sodium of 138, potassium 3.7, chloride 100, bicarb 32, BUN 19, creatinine 0.82, glucose of 91. Initial high sensitivity troponin was normal at 4.9 with a follow-up value of 6.6. TSH is normal at 0.566. Diagnostic Findings Echocardiogram notes moderate to severe left ventricular dysfunction with ejection fraction of 25-30%. There was a large area of akinesis involving the mid and distal anterior wall, anteroseptum, and her lateral wall. The apex is also akinetic. No thrombus. At least moderate mitral regurgitation. EKG notes normal sinus rhythm with frequent PACs and a complete left bundle-branch block. Chest x-ray notes cardiomegaly. PG Care Time/CCT Total # of Minutes Spent Total Time Spent with Patient: Total time spent is greater than 50% in coordination of care (as documented) at patient's floor/unit and/or counseling patient: Coding Level of Care Code 64052 INT INP/OBS CARE 3/75MIN Diagnoses CAD (coronary artery disease) I25.10 Acute on chronic systolic (congestive) heart failure I50.23 Mitral valve disorder I05.9
--- NOTE | 2022-09-27 14:04 | Electrocardiogram Report ---
Test Reason : Blood Pressure : / mmHG Vent. Rate : 087 BPM Atrial Rate : 087 BPM P-R Int : 188 ms QRS Dur : 164 ms QT Int : 442 ms P-R-T Axes : 081 010 159 degrees QTc Int : 531 ms Sinus rhythm with Premature supraventricular complexes Left bundle branch block Abnormal ECG When compared with ECG of 30-AUG-2012 12:16, Premature supraventricular complexes are now Present Left bundle branch block is now Present Confirmed by Renan Gomez ([id number]) on 09/27/2022 2:03:55 PM Referred By: REFERRED SELF Confirmed By:Renan Gomez
[2022-09-27] MEDS: TRAVOPROST Z 0.004% OPH SOLN 2.5 ML BTL OP SCH (20:24)
[2022-09-27] MEDS: AMITRIPTYLINE HCL 25 MG TAB PO SCH (20:25)
[2022-09-27] MEDS: traMADol HCL 50 MG TABLET PO PRN (20:25)
[2022-09-28] MEDS: LEVOTHYROXINE SODIUM 125 MCG TABLET PO SCH (06:27)
--- NOTE | 2022-09-28 07:38 | Hospitalist Progress Note ---
Date of Service September 28, 2022 Assessment & Plan (1) CAD (coronary artery disease): Plan: - 2 months ago had chest pressure at home with pain radiating to left arm/jaw with associated SOB and diaphoresis, self-resolved - Has had some chest paind and IRVIN since that time, with some of the same this weekend - Troponins negative - EKG with LBBB - Echo today with new LV dysfunction EF 25-30%, with large anteroapical wall motion abnormality - For catheterization tomorrow - Continue aspirin, metoprolol tartrate (transition to succinate for discharge), and losartan - BNP is elevated at 992, no prior on file for baseline - She is not hypoxic, CXR shows interstitial opacities and small left pleural effusion - Received IV diuresis today and in ER, defer further and await CHF consult (Winter mckeon) - Cardiology consulted and appreciate recommendations (2) HFrEF (heart failure with reduced ejection fraction): Plan: - EF 25-30% on Echo 09/27, suspected ischemic cardiomyopathy, cath tomorrow - On beta yash and ARB already (3) HTN (hypertension): Plan: - Low-sodium diet - Continue metoprolol, ARB; stop amlodipine given WMA per Cardiology (4) Hypothyroidism: Plan: - Last TSH 0.61, continue Synthroid (5) Gastroesophageal reflux disease without esophagitis: Plan: - Continue PPI (6) Chronic anemia: Plan: - At baseline, 11.9 on admission normocytic - No acute bleeding Plan Cath tomorrow, ongoing recs after this Admission and Anticipated Discharge Date Admission Date: September 26, 2022 Results & Data Results & Data Vital Signs (Past 12 Hours) Vital Signs Temp Pulse Resp BP Pulse Ox O2 Del Method 09/28/22 07:25 Room Air 09/28/22 03:00 36.8 C 63 16 126/68 96 Room Air 09/27/22 23:00 36.7 C 82 16 126/66 96 Room Air PG Care Time/CCT Total # of Minutes Spent Total Time Spent with Patient: Total time spent is greater than 50% in coordination of care (as documented) at patient's floor/unit and/or counseling patient: Coding Diagnoses CAD (coronary artery disease) I25.10 HFrEF (heart failure with reduced ejection fraction) I50.20 HTN (hypertension) I10 Hypertension type: essential hypertension Hypothyroidism E03.9 Hypothyroidism type: acquired Gastroesophageal reflux disease without esophagitis K21.9 Chronic anemia D64.9 (3) HTN (hypertension) Hypertension type: essential hypertension Qualified Code(s): I10 - Essential (primary) hypertension (4) Hypothyroidism Hypothyroidism type: acquired Qualified Code(s): E03.9 - Hypothyroidism, unspecified
[2022-09-28] MEDS: METOPROLOL TARTRATE 50 MG TAB PO SCH (07:45)
[2022-09-28] MEDS: ASPIRIN 81 MG ECTAB PO SCH (07:46)
[2022-09-28] MEDS: LOSARTAN POTASSIUM 50 MG TAB PO SCH (07:46)
[2022-09-28] MEDS: amLODIPine BESYLATE 5 MG TAB PO SCH (07:46)
[2022-09-28] MEDS: PANTOprazole 40 MG TAB PO SCH (07:47)
[2022-09-28 07:56] LABS: BUN Creatinine Ratio 23.3 (10-20); Calcium 9.5 mg/dl (8.6-10.3); Creatinine Clr Calc Pharmacy 42.8 ml/min; Est GFR (Non-African American) 59.5 ml/min; Potassium 3.7 mmol/L (3.5-5.1)
[2022-09-28 08:03] LABS: Basophils # (auto) 0.04 K/uL (0-0.2); Basophils % (auto) 0.7 %; Eosinophils % (auto) 3.5 %; Hematocrit (blood only) 33.2 % (37.0-47.0); Hemoglobin 11.3 g/dl (12.0-16.0); Immature Granulocytes # (auto) 0.02 K/uL (0.01-0.20); Immature Granulocytes % (auto) 0.3 %; Lymphocytes # (auto) 2.05 K/uL (1.2-3.4); Lymphocytes % (auto) 35.7 %; Mean Corpuscular Hemoglobin 30.1 pg (25.0-34.0); Mean Corpuscular Volume 88.3 fL (80.0-100.0); Mean Platelet Volume 9.9 fL (9.4-12.4); Monocytes % (auto) 10.4 %; Neutrophils # (auto) 2.84 K/uL (1.40-6.50); Neutrophils % (auto) 49.4 %; Platelet Count 260 K/uL (130-400); RDW Coefficient of Variation 13.4 % (11.5-14.5); RDW Standard Deviation 43.8 fL (36.4-46.3); Red Blood Count 3.76 M/uL (4.20-5.40); White Blood Count 5.75 K/ul (4.8-10.8)
[2022-09-28] MEDS ORDERED: MIDAZOLAM HCL 1 MG/ML 2ML VIAL ONE (11:26)
[2022-09-28] MEDS ORDERED: HEPARIN (PORCINE) 1000 UNIT/ML 10 ML (CATH LAB USE ONLY) ONE (11:26)
[2022-09-28] MEDS ORDERED: niCARdipine HCL INJ 2.5 MG/ML 10 ML AMP ONE (11:26)
[2022-09-28] MEDS ORDERED: NITROGLYCERIN/D5W 100MCG/ML 20ML SYR ONE (11:27)
[2022-09-28] MEDS ORDERED: fentaNYL citrate PF 100 MCG/2 ML VIAL ONE (11:27)
[2022-09-28] MEDS ORDERED: diphenhydrAMINE 50 MG/ML VIAL ONE (11:38)
[2022-09-28] MEDS ORDERED: FAMOTIDINE 20MG/5ML IV PUSH IV ONE (11:38)
[2022-09-28] MEDS ORDERED: methylPREDNISolone 125 MG/2 ML VIAL ONE (11:38)
--- NOTE | 2022-09-28 11:42 | Pre Anesthesia Assessment ---
Date of Service September 28, 2022 Pre Sedation Assessment Vital Signs Temp Pulse Pulse Resp BP BP Pulse Ox 09/28/22 11:02 73 18 145/66 H 97 09/28/22 10:25 97.7 F 66 18 122/80 96 09/28/22 07:44 97.7 F 72 16 130/74 95 09/28/22 07:25 09/28/22 03:00 98.2 F 63 16 126/68 96 09/27/22 23:00 98.1 F 82 16 126/66 96 09/27/22 19:00 98.1 F 74 18 150/69 H 95 09/27/22 16:00 79 09/27/22 15:44 98.2 F 67 18 150/72 H 94 O2 Del Method 09/28/22 11:02 Room Air 09/28/22 10:25 Room Air 09/28/22 07:44 Room Air 09/28/22 07:25 Room Air 09/28/22 03:00 Room Air 09/27/22 23:00 Room Air 09/27/22 19:00 Room Air 09/27/22 16:00 09/27/22 15:44 Room Air Cardiovascular RRR, no murmur, no edema Respiratory normal respiratory effort, lungs clear to auscultation Pre-Sedation Airway Assessment Smoking Status: Never smoker Hx Sleep Apnea: No Hx Difficult Intubation: No Short, Thick Neck: No Thyromental Distance: > or= 3.5 Finger Breadths Oral Cavity: + Dentures and + WNL Mallampati Class: III ASA: ASA3 NPO Status Date of Last Intake of Fluids: 09/27/22 Time of Last Intake of Fluids: 07:00 Date of Last Intake of Solid Food: 09/27/22 Time of Last Intake of Solid Foods: 17:00 Procedure Planning Contraindications for Sedation: none Current Medications Reviewed: Yes Notes The planned sedation has been discussed with the patient. Informed Consent was obtained. I have identified the patient, determined the appropriateness of sedation and have assessed the patient immediately prior to the procedure. All medicine(s) and interventions are by my order.
[2022-09-28 12:17] LABS: iSTAT Arterial Blood Gas HCO3 29 meg/L (19-24); iSTAT Arterial Blood Gas pCO2 43 mmHg (35-46); iSTAT Arterial Blood Gas pH 7.43 (7.35-7.45); iSTAT Arterial Blood Gas pO2 100 mmHg (80-95); iSTAT Carbon Dioxide 30 mmol/L (24-31); iSTAT Hematocrit 35 % (37-47); iSTAT Hemoglobin 11.9 g/dl (12.0-16.0); iSTAT Potassium 3.5 mmol/L (3.3-5.0); iSTAT Sodium 135 mmol/L (135-144)
--- NOTE | 2022-09-28 12:28 | Post Anesthesia Assessment ---
Date of Service September 28, 2022 Post Sedation Assessment Vital Signs Temp Pulse Pulse Resp BP BP Pulse Ox 09/28/22 11:02 73 18 145/66 H 97 09/28/22 10:25 97.7 F 66 18 122/80 96 09/28/22 07:44 97.7 F 72 16 130/74 95 09/28/22 07:25 09/28/22 03:00 98.2 F 63 16 126/68 96 09/27/22 23:00 98.1 F 82 16 126/66 96 09/27/22 19:00 98.1 F 74 18 150/69 H 95 09/27/22 16:00 79 09/27/22 15:44 98.2 F 67 18 150/72 H 94 O2 Del Method 09/28/22 11:02 Room Air 09/28/22 10:25 Room Air 09/28/22 07:44 Room Air 09/28/22 07:25 Room Air 09/28/22 03:00 Room Air 09/27/22 23:00 Room Air 09/27/22 19:00 Room Air 09/27/22 16:00 09/27/22 15:44 Room Air Recovery Score Activity: Moves 4 extremities Respiration: Deep Breath/Cough Circulation: +/-20% PreAnes Value Consciousness: Fully Awake Oxygen Saturation: O2 needed for >90% Discharge Sedation Level of Care: Fast Track Phase II Post Sedation Plan On clinical assessment, the patient appears to have tolerated the sedation without complications. Patient is recovering as anticipated. Patient will continue to be monitored by nursing and may be discharged when sedation discharge criteria are met per below protocol. Upon Completions of procedure up to 15 minutes continue every 5 minute vital signs and the P.A.R. score; then discharge to a Phase I or Fast Track to Phase II per the following guidelines: * Discharge Patient to appropriate Phase II area if PAR is 8 or greater or return to pre- procedure baseline. The post - procedure orders will be as di rected. * If PAR score is less than 8 or not return to pre-procedure baseline then patient will follow Phase I monitoring till PAR is reached for Phase II. The Phase I may be done in procedure room or may call to secure a Phase I area. * If naloxone or flumazenil are used for reversal, hold in Phase I for continued monitoring from when last reversal dose was given for a minimum of 60 minutes or longer pending the nurse and/or physician discretion of patient condition before discharge to Phase II. Please call the Sedation Physician to re-evaluate and complete post-note for discharge to Phase II area. Do NOT discharge from procedure sedation or Phase 1 until post- sedation evaluation note is complete by procedure /sedation MD Sedation Discharge Instructions to be given to the patient at discharge to home.
--- NOTE | 2022-09-28 12:35 | Cardiac Catheterization ---
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 Cardiac Status Clinical evaluation leading to the procedure CAD Presenation: Unstable angina Anginal Classification: CCS III Heart Failure: NYHA Class: CCS IV Diagnostic Physicians Name: Maximo Barrera MD Closure Device Recommendations: Medical Therapy and/or Counseling Cardiac Cath Procedure Full Procedure Date September 28, 2022 Pre-Procedure Diagnosis Pre-Procedure Diagnosis: Cardiomyopathy AUC Score AUC Score: 7 Post-Procedure Diagnosis Post-Procedure Diagnosis: Moderate CAD and Normal Intracardiac Pressures Procedure(s) Performed Procedure(s) Performed: Coronary Angiography, Left Heart Cath, Right Heart Cath and LV Angiography Farm Equipment Operator Maximo Barrera MD Leather Colorer(s) [place] Estimated Blood Loss Estimated Blood Loss: 10 Medication(s) Medication(s): Fentanyl, Heparin, Lidocaine 1%, Nicardipine, Nitroglycerin and V ersed Summary of Findings Indication: Cardiomyopathy, acute heart failure Access: 6 Fr right radial artery, 6 Fr right antecubital vein Catheters: [place], pigtail, 6 Fr [place] Findings: LM -normal caliber, no significant disease LAD -medium caliber, 40 to 50% mid segment stenosis after first septal. Remainder of vessel without significant disease and continues around apex. D1 20 to 30% ostial, medium D2 40% ostial. Circumflex -medium caliber, midsegment luminal irregularities with myocardial bridging RCA -dominant, medium caliber, angiographically normal RA 3 RV 26/6 PA 26/9 (16) PAWP 6 LVEDP 13 PaSat 68% AoSat 98% [place] CO/CI 5.1/3.2 Thermo CO/CI 3.1/2.0 LV gram -- LVEF 30% with anterior wall severe hypokinesis. MR 2-3+ Arterial Closure: TR band Summary: 1. Moderate nonobstructive coronary artery disease -40 to 50% mid LAD 40 to 50% ostial medium D2 2. Normal left and right-sided filling pressures 3. Normal pulmonary artery pressures 4. Preserved cardiac output 5. 2-3+ mitral regurgitation Recommendations: Moderate CAD does not explain patient's moderate to severe LV dysfunction. Further evaluation for causes of nonischemic cardiomyopathy Optimize CHF medication regimen Continued ASCVD risk factor modification Hemodynamics Rest Ao:: 156/73/107 Final Ao: 166/69/107 LV: 164/13 Recommendations Recommendations: Medical Therapy and/or Counseling Specimens Specimens: None Radiation Exposure (mGy) 368 Contrast (mls) 75 Anesthesia Moderate [id number] Procedural Complication(s) None Disposition PCU I attest to the content of the Intraoperative Record and any orders documented therein. Any exceptions are noted below. MNP Card Cath Procedure Codes Cardiac Catheterization Procedure 1: Cardiovascular Cath Procedures: 70060 Coronaries & LHC (+/-LV) & RHC Moderate Sedation Procedure 1: Sedation/Anesthesia: 74631 Mod Sedation by the same physician;Init15 Min Child Age 5 & Up Procedure 2: Sedation/Anesthesia: 64530 Mod Sedation by the same physician; Ea [id number] Minutes PG Care Time/CCT Total # of Minutes Spent Total Time Spent with Patient: Total time spent is greater than 50% in coordination of care (as documented) at patient's floor/unit and/or counseling patient:
[2022-09-28 14:28] LABS: iSTAT Arterial Blood Gas HCO3 31 meg/L (19-24); iSTAT Arterial Blood Gas pCO2 49 mmHg (35-46); iSTAT Arterial Blood Gas pO2 36 mmHg (80-95); iSTAT Carbon Dioxide 32 mmol/L (24-31); iSTAT Hematocrit 36 % (37-47); iSTAT Hemoglobin 12.2 g/dl (12.0-16.0); iSTAT Potassium 3.5 mmol/L (3.3-5.0); iSTAT Sodium 135 mmol/L (135-144)
--- NOTE | 2022-09-28 15:30 | Discharge Summary ---
Discharge Summary Date of Service September 28, 2022 Admission HPI Per Admitting Provider Anay Weaver is an 81-year-old female with a past medical history of hypertension, hypothyroidism, osteopenia, hyponatremia who presents with progressive worsening dyspnea over the last week Anay is seen at the bedside with her son angelito present. Anay reports she has bene progressively more short of breath for a couple months. Notes exertional dyspnea for a few months. thought it was from post COVID which she had last month with a residual dry cough. 2 months ago had her first episode of chest pain at 3am which woke her from sleep under the L chest and which went into her L arm. [place] like she couldn't breath. Waited it out and got 'very clammy and sweaty and felt like I was going to pass out'. Passed after 15 minutes or so. Went away by morning so never sought an evaluation. Since that time shortness of breath has progressively worsened. Had another episode of chest pain getting out of the shower and got a similar pain in the chest but sharper in the L arm 2 weeks ago. She again got very sweaty and short of breath. Laid down in bed and symptoms passed after 20 minutes. Continued to have exertional shortness of breath sicne then. Has no longer been able to get to the top of her stairs or out to the dumpster without getting extremely dyspneic and had to stand still and rest for a while before walking again. Was worried she might have pneumonia affecting her breathing so came for evaluation. Had one episode of <20 minutes of chest pain, SoB, diaphoresis on tuesday, She has had no chest pain in the last pain in the last 48 hours. No chest pain at time of evaluation, no sob at time of evaluation. Has some pain under her rib with deep breathing. No history of DM. +history of HTN and reports normally ~130s with amlodipine, metoprolol, and telmisartan. Takes a daily 81mg aspirin. Fhx of DM and endocrine problems from agent [place]. [place] in mother at age 76. Father had a stroke at age 81. Medical History: Reviewed Medications: Reviewed Surgical History: Reviewed Family history: Reviewed Allergies: Reviewed Social History: No tobacco use, social etoh use none in the last few weeks. normally 1 glass of wine 3x/week at night Code Status: DNR/DNI Admission Exam Per Admitting Provider General: A&Ox3. NAD. Cooperative. HEENT: Atraumatic, normocephalic. Vision/hearing intact Pulm: CTAB A&P. -wheezes, -rales, -rhonchi. Symmetrical chest rise. No increased work of breathing. No respiratory distress. Cardiac: RRR, -mrg. Radial pulses intact and symmetrical. Trace JVD at the clavicle which rises about 2 cm above the clavicle on HJR Abdominal: Nontender, nondistended, soft. BS present. Ext: Warm, dry. Moves all extremities equally. 1+ ankle edema bilateral Principal Dx & Hospital Course #1 = Principal Diagnosis (1) CAD (coronary artery disease): - 2 months ago had chest pressure at home with pain radiating to left arm/jaw with associated SOB and diaphoresis, self-resolved - Has had some chest pain and IRVIN since that time, with some of the same this weekend, symptom free on discharge - Troponins negative - EKG with LBBB - Echo 09/27/22 with new LV dysfunction EF 25-30%, with large anteroapical wall motion abnormality - Catheterization with non-occlusive CAD - Continue aspirin, transition to metoprolol succinate 100mg daily, and losartan - BNP is elevated at 992, no prior on file for baseline - She is not hypoxic, CXR shows interstitial opacities and small left pleural effusion - Established now with CHF clinic and will follow up also with Cardiology (2) HFrEF (heart failure with reduced ejection fraction): - EF 25-30% on Echo 09/27, suspected ischemic cardiomyopathy, cath tomorrow - On beta yash and ARB, aspirin (3) HTN (hypertension): - Low-sodium diet - Continue metoprolol, ARB; stop amlodipine given WMA per Cardiology (4) Hypothyroidism: - Last TSH 0.61, continue Synthroid (5) Gastroesophageal reflux disease without esophagitis: - Continue PPI (6) Chronic anemia: - At baseline, 11.9 on admission normocytic - No acute bleeding Plan home with cardiology follow up Discharge Exam Constitutional WD/WN, vitals as above Respiratory lungs CTA Psychiatric A+Ox3, euthymic affect Updated Medication List Medication Instructions Recorded Confirmed Type [id number]-nzh-[id number]-[id number] 250 1 tab PO DAILY 11/28/18 09/26/22 History mg-40 mg-5 mg-125 unit tablet fexofenadine 180 mg tablet 180 mg PO DAILY PRN allergic 11/28/18 09/26/22 History (Ana Allergy) symptoms travoprost 0.004 % eye drops 1 drops ophthalmic (eye) HS 11/28/18 09/26/22 History (Travatan Z) clotrimazole-betamethasone 1 1 applic topical DAILY #15 grams 02/22/20 09/26/22 Rx %-0.05 % topical cream pentoxifylline 400 mg 400 mg PO QAM 05/06/22 09/26/22 History tablet,extended release tramadol 50 mg tablet 50 mg PO TID PRN pain #90 tabs 08/20/22 09/26/22 Rx amitriptyline 75 mg tablet 75 mg PO HS 09/26/22 09/26/22 History wycybkatyv-bwegrzf-kolehyso 50 1 cap PO DAILY PRN Migraine 09/26/22 09/26/22 History mg-325 mg-40 mg capsule Headache celecoxib 200 mg capsule 200 mg PO QAM 09/26/22 09/26/22 History levothyroxine 125 mcg tablet 125 mcg PO QAM 09/26/22 09/26/22 History omeprazole 40 mg capsule,delayed 40 mg PO QAM 09/26/22 09/26/22 History release aspirin 81 mg tablet,delayed 81 mg PO QAM #0 tabs 09/28/22 Rx release losartan 50 mg tablet 50 mg PO QAM 30 days #30 tabs 09/28/22 Rx metoprolol succinate 50 mg 100 mg PO QAM 30 days #60 tabs 09/28/22 Rx tablet,extended release 24 hr Hospital Stay Data Consultations 09/26/22 16:49 Consult Cardiology Routine 09/26/22 16:56 ED Decision to Admit Stat 09/27/22 18:12 [facility] CHF Program Referral Routine Procedures Performed Operation Date: 09/28/22 11:00 Actual Procedures p Cath, Right and Left Heart - Sergio Barrera MD Diagnostic Imagining Performed 09/28/22 06:32 CL Cath Imgs for PACS use only Routine Pending Results Patient Have Any Pending Studies at Discharge: No Discharge Instructions Given to Patient (Per Discharging Provider) You are admitted to the hospital for evaluation of chest discomfort. You were found to have a decreased heart function, but no evidence of a full blockage on your heart catheterization. Some medications were added to your regimen to help with your heart function, and hopefully over time this will improve. This includes metoprolol succinate 100 mg once daily in the morning. Because this medication was started, your amlodipine was stopped and your metoprolol tartrate was stopped. Your telmisartan was stopped, in favor of a medication that is better for heart dysfunction called losartan. This is also 1 pill daily. You should continue your other home medications. Please see your new updated medication list below. You will have follow-up with Megan Parra with our heart failure clinic, as well as Dr. Renan Gomez with our cardiology clinic. Total Time Total Time Spent Total Time Spent (In Minutes): 35 min Coding Level of Care Code 36342 INP/OBS DISCH >30 MIN Diagnoses CAD (coronary artery disease) I25.10 HFrEF (heart failure with reduced ejection fraction) I50.20 HTN (hypertension) I10 Hypertension type: essential hypertension Hypothyroidism E03.9 Hypothyroidism type: acquired Gastroesophageal reflux disease without esophagitis K21.9 Chronic anemia D64.9
[2022-09-28] MEDS: PENTOXIFYLLINE 400MG EXT REL TAB PO SCH (16:31)
[2022-09-28] MEDS: MULTIVITAMIN TAB PO SCH (16:32)
[2022-09-29] MEDS ORDERED: METOPROLOL SUCC 50MG EXT REL TAB PO SCH (09:00)
== END 2022-09-28 19:50 | disposition home or self-care (01) | DRG 286 ==
LOC: ED 14:58 → SUATTDRO 17:35 → 2S 17:35